=== PATIENT | male | born 1990 | race Two or more races ===

== ENCOUNTER 2021-06-16 12:33 | Emergency (ER) | payer SELFPAY ==
[~2021-06-16] VITALS: Ht 170.2 cm; Wt 90.7 kg
--- NOTE | 2021-06-16 12:33 | NUR ---
BIBS C/O CHEST PAIN THAT STARTED AN HOUR AGO WHILE SHOWERING, PAIN DOES NOT RADIATE. PT STATED HE FELT NAUSEOUS AT THE TIME, DENIES NAUSEA AND HEADACHE AT THIS TIME. PT ATTACHED TO MONITOR, NO RESP DISTRESS NOTED. AWAITING MD CASTREJON.
--- NOTE | 2021-06-16 12:50 | NUR ---
DR AMARO AT BEDSIDE
[2021-06-16 13:18] LABS: BASOPHILS # (AUTO) 0.1 K/uL (0.0-0.2); BASOPHILS % (AUTO) 1.2 % (0.0-2.0); EOSINOPHILS % (AUTO) 0.9 % (0.0-6.0); HEMATOCRIT 43 % (39-51); HEMOGLOBIN 15.1 g/dL (13.5-17.5); LYMPHOCYTES # (AUTO) 2.4 K/uL (0.8-4.8); MEAN CORPUSCULAR HGB CONC 35 g/dl (31.0-36.0); MEAN CORPUSCULAR VOLUME 86 fL (80-96); MONOCYTES # (AUTO) 0.8 K/uL (0.1-1.30); MONOCYTES % (AUTO) 10.6 % (2.0-12.0); NEUTROPHILS # (AUTO) 4.1 K/uL (1.8-8.9); NEUTROPHILS % (AUTO) 55.3 % (43.0-81.0); PLATELET COUNT (AUTO) 218 K/uL (150-450); RED BLOOD CELL COUNT(AUTO) 5.04 MIL/uL (4.5-6.0); WHITE BLOOD COUNT (AUTO) 7.4 K/uL (4.3-11.0)
[2021-06-16 13:30] LABS: CALCIUM, SERUM 9.5 mg/dL (8.5-10.1); CARBON DIOXIDE 27 mmol/L (21-32); CHLORIDE 99 mmol/L (98-107); CREATININE 1.2 mg/dL (0.6-1.3); GLUCOSE 118 mg/dL (74-106); POTASSIUM 3.5 mmol/L (3.5-5.1); SODIUM SERUM 135 mmol/L (136-145); UREA NITROGEN, BLOOD 10 mg/dL (7-18)
--- NOTE | 2021-06-16 14:23 | NUR ---
IV removed. Catheter intact and site benign. Pressure and 4x4 applied to site. No bleeding noted.Patient discharged to home in stable condition. Written and verbal after care instructions given. Patient verbalizes understanding of instruction.
[2021-06-16 14:24] VITALS: BP 137/84
== END 2021-06-16 14:24 | disposition home or self-care (01) ==
LOC: ER 12:39
DX: R07.89 Other chest pain (principal); K21.9 Gastro-esophageal reflux disease without esophagitis; Z88.2 Allergy status to sulfonamides
CPT/HCPCS: 36415; 71045-TC; 80048-TC; 84484-TC; 85025-TC